=== PATIENT | male | born 2005 | race African-American/Black ===

== ENCOUNTER 2023-08-09 03:00 | Emergency (ER) | payer MEDICAID, OTHER ==
[2023-08-09] MEDS ORDERED: Take Home: Ondansetron 4 MG Tab.DIS, 5 Tab Pack PO ONE (03:13)
[2023-08-09] MEDS ORDERED: Ketorolac 30 MG/ML SDV IM ONE (03:14)
== END 2023-08-09 03:36 | disposition home or self-care (01) ==
LOC: DL.ED 03:00
DX: R11.2 Nausea with vomiting, unspecified (principal)
CPT/HCPCS: 96372; 99283; J1885; Q0162; 99282